=== PATIENT | male | born 1935 | race Caucasian/White ===

== ENCOUNTER 2016-03-05 14:38 | Inpatient (IN) | payer OTHER ==
[~2016-03-05] VITALS: Ht 167.6 cm; Wt 71.3 kg
--- NOTE | ~2016-03-05 | EKG ---
[place], [place] ELECTROCARDIOGRAM REPORT NAME: LELIA JUAREZ UNIT #: [id number] ROOM: 426 DOCTOR: CRISTOFER TELLEZ MD BIRTHDATE: [birth year] DOS: 03/05/2016 TIME: 1529 hours. Normal sinus rhythm with atrial sensing and ventricular pacing, rate 59 beats per minute. An abnormal ECG. No previous tracing is available for comparison. CRISTOFER TELLEZ MD CM:EKGRPT:ELECTROCARDIOGRAM REPORT 1703 1805 CRISTOFER TELLEZ MD
--- NOTE | ~2016-03-05 | PR ---
[place], [place] PROGRESS NOTE NAME: LELIA JUAREZ UNIT #: [id number] ROOM: 426 DOCTOR: CRISTOFER TELLEZ MD BIRTHDATE: [birth year] DOS: 03/08/2016 SUBJECTIVE: This patient with coronary artery disease, remote coronary stenting of the circumflex and PTCA of distal LAD, had normal LV systolic function, which had been bad previously. 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 I saw the patient in the office about a week ago and he was doing fine. He had no symptoms at all and came to the hospital because of feeling weak and tired. He had some dizziness, particularly when he stood up and he has a spinning sensation and some nausea with it. He did not have any palpitations. PHYSICAL EXAMINATION: GENERAL: The patient who looks very lively, alert and oriented, good complexion. VITAL SIGNS: Pulse is regular at 60 beats per minute, blood pressure is fine. NECK: Normal JVP. LUNGS: Few crackles in the lower zones. LABORATORY DATA: Monitor shows normal sinus rhythm in the 50s with atrial sensing and ventricle pacing. Interrogation of the pacemaker demonstrated JASON/elective replacement indicator; however, there is still a few weeks of battery left. IMPRESSION: This patient probably has acute vertigo, which is causing his symptoms. I do not believe this is cardiac. He requires pacemaker generator change, but this can be done electively. From cardiac standpoint, he may be discharged home. CRISTOFER TELLEZ MD CM:PNTRANS [id number] CRISTOFER TELLEZ MD 03/09/16 0950 interface
--- NOTE | ~2016-03-05 | CON ---
[place], [place] REPORT OF CONSULTATION NAME: LELIA JUAREZ UNIT #: [id number] ROOM: 426 DOCTOR: AFSHIN GARCIA MD BIRTHDATE: [birth year] DOS: 03/07/2016 I am covering for Dr. Fletcher. The patient is examined. REASON FOR CONSULTATION: Shortness of breath and significant dizziness and syncope. HISTORY OF PRESENT ILLNESS: An 81-year-old gentleman with a known history of permanent pacemaker, prostate cancer, hypertension, presented to the ER with significant dizziness, shortness of breath and near syncope. Incident started at 1:00 p.m. yesterday without any initiating incident. Does have a significant known history of coronary artery disease and stent placement. The patient became severely dizzy, diaphoretic and nauseated while he was sawing wood, but he says he saws wood daily and this has not occurred. His left arm started having pain and became stiff. He was able to bend over and brace himself, so that he did not fall over. Denies any chest discomfort, shortness of breath or palpitation. Symptoms got worse and he came to the emergency room. He decided to go to the emergency room as mentioned, where he became increasingly short of breath for the last 3 weeks and worsened activity. The patient was seen by Dr. Fletcher recently and was told that his pacemaker battery needs to be replaced. No fever, no chills, no new neurological issues. CT scan in the emergency room showed no acute intracranial process, small vessel white matter. Chest x-ray showed no active pulmonary disease. PAST MEDICAL HISTORY: Myocardial infarction, permanent pacemaker, prostate cancer previous stent placement, neck surgery, orchiectomy, and diabetes. SOCIAL HISTORY: Consumes alcohol occasionally. Denies any drug abuse. FAMILY HISTORY: Noncontributory. ALLERGIES: TO QUININE. HOME MEDICATIONS: Carvedilol and metformin. REVIEW OF SYSTEMS: CONSTITUTIONAL: No fever, no chills. HEENT: No visual disturbances or hearing problems. CARDIOVASCULAR: Reports diaphoresis. No chest discomfort. No palpitations. RESPIRATORY: Reports shortness of breath, no cough, no congestion, no hemoptysis. GASTROINTESTINAL: No nausea, no vomiting. GENITOURINARY: No dysuria, hematuria. NEUROLOGIC: Reports near syncopal episode. PSYCHIATRIC: Intact. SKIN: Normal. PHYSICAL EXAMINATION: [place], [place] REPORT OF CONSULTATION NAME: LELIA JUAREZ UNIT #: [id number] ROOM: 426 DOCTOR: AFSHIN GARCIA MD BIRTHDATE: [birth year] VITAL SIGNS: Blood pressure is 130/50. He is in paced rhythm. HEENT: Unremarkable. NECK: Supple, no JVD, no thyromegaly. No lymphadenopathy. LUNGS: Diminished breath sounds. HEART: Sounds are paced. NEUROLOGICAL: Appears to be stable. EXTREMITIES: Intact. LABORATORY DATA: Sodium 141, potassium 3.7, BUN and creatinine is 16 and 1. Troponins have all been negative. Hemoglobin 13.4, hematocrit 39.1. Electrolytes are normal. EKG shows intermittent paced rhythm. IMPRESSION: The patient with a near syncopal episode, urinary tract infection, moderate protein calorie malnutrition, permanent pacemaker, diabetes, hypertension, hyperlipidemia. RECOMMENDATIONS: I agree with the present care for the patient. I will review the echocardiogram. Get a carotid ultrasound, orthostatic blood pressures. We will have the pacemaker interrogated and if there is battery depletion, the patient needs the generator change. I discussed the case with Dr. Fletcher and further management will depend upon the pacer interrogation. AFSHIN GARCIA MD CM:CONSTR:REPORT OF CONSULTATION 0719 04/13/16 0859 interface
--- NOTE | ~2016-03-05 | EKG ---
[place], [place] ELECTROCARDIOGRAM REPORT NAME: LELIA JUAREZ UNIT #: [id number] ROOM: 426 DOCTOR: CRISTOFER TELLEZ MD BIRTHDATE: [birth year] DOS: 03/07/2016 TIME: 1005 hours. Sinus bradycardia at 55 beats per minute. A dual-chamber pacemaker is present with atrial sensing and ventricular pacing. CRISTOFER TELLEZ MD CM:EKGRPT:ELECTROCARDIOGRAM REPORT 1703 1812 CRISTOFER TELLEZ MD
--- NOTE | ~2016-03-05 | CON ---
[place], [place] REPORT OF CONSULTATION NAME: LELIA JUAREZ UNIT #: [id number] ROOM: 426 DOCTOR: MARAH GRIDER MD BIRTHDATE: [birth year] DOS: 03/07/2016 PULMONARY CONSULTATION CONSULTATION REQUESTED BY: Hospitalist services. REASON FOR CONSULTATION: To assess the patient for current pulmonary nodules. HISTORY OF PRESENT ILLNESS: An 81-year-old white male who has been hospitalized on 03/05/2016. The patient was noted with symptoms described with significant diuresis, shortness of breath and dizziness as well as a pain in the left shoulder. The pain has been described intermittently. The patient stated that he almost passed out for a short period of time without any injury. The symptoms have been noted intermittently. The patient has been brought to the hospital, currently treated for that. He was also noted some pain in the neck area. He denies any symptoms of hemoptysis. Denies any symptoms of wheezing or cough. The patient does have symptoms of shortness breath, which occurs with exertion and previously remains unchanged. REVIEW OF SYSTEMS: CONSTITUTIONAL SYMPTOMS: Symptoms of fatigue and tiredness noted without fever or chills. EYES: Denies any burning, redness, or tenderness. EARS, NOSE, THROAT SYMPTOMS: No sore throat, hoarseness, otalgia, postnasal drainage or epistaxis. CARDIOVASCULAR: Denies anginal pain, edema or pain of the lower extremities. GASTROINTESTINAL: Denies dysphagia, nausea, vomiting, diarrhea, abdominal weight loss, history of hematemesis, or melena. GENITOURINARY: Denies dysuria, suprapubic pain, hematuria. MUSCULOSKELETAL: Denies acute joint pain, redness, or tenderness. SKIN: No lesions or rashes. CENTRAL NERVOUS SYSTEM: Current symptom of dizziness, but no symptoms of seizures, diplopia, migrainous headache. Remaining systems were reviewed with the patient, they were noted all negative. PAST MEDICAL HISTORY: 1. Essential hypertension. 2. Type 2 diabetes mellitus. 3. Asbestos-related pulmonary disease. 4. History of previous known pulmonary nodules in the right upper lung. 5. History of prostate cancer. PAST SURGICAL HISTORY: 1. Pacemaker insertion. 2. Surgery of the foot. 3. Cardiac catheterization and coronary artery stent insertion. 4. Neck fusion. 5. Orchiectomy. 6. Related surgery of the prostate. 7. History of rheumatoid arthritis. [place], [place] REPORT OF CONSULTATION NAME: LELIA JUAREZ UNIT #: [id number] ROOM: 426 DOCTOR: MARAH GRIDER MD BIRTHDATE: [birth year] SOCIAL HISTORY: The patient is . He lives at home. Smoking for this patient was described to be none. There was no history of alcohol or illicit drug use. He has worked for 31 years in the [employer] with exposure to asbestos intermittent and other kind of dust. FAMILY HISTORY: Both parents for this patient, mother at age of 60+ years old from motor vehicle accident, father at the age of 5757 years old from complication of cancer of the colon. MEDICATIONS: Current administered medications noted use of Protonix, sliding scale insulin coverage, simvastatin, magnesium hydroxide p.r.n., and other p.r.n. medications. DRUG ALLERGY HISTORY: The patient noted allergy to QUININE. PHYSICAL EXAMINATION: GENERAL: An 81-year-old rather male who has been noted currently awake and alert without any distress, sitting on side of bed. VITAL SIGNS: Height of 5 feet 6 inches, weight of 157 pounds, BMI 25.3. Vital signs of the patient which has been recorded showed the temperature noted normal, respiratory rate 18-20, heart rate 91-53, blood pressure 120/50-154/62. Intake 1560, output 950 mL. Pulse oxygen saturation of the patient on room air was noted 97% saturation. HEENT: Head was atraumatic. Eyes nonicterus. NECK: Supple. CARDIOVASCULAR: S1, S2 is audible. LUNGS: Noted with mild basilar dry rales. There were no wheezing. ABDOMEN: Flat, soft, nontender. EXTREMITIES: Shows no edema, clubbing or cyanosis. MUSCULOSKELETAL: No deformities. SKIN: No lesions or rashes. CENTRAL NERVOUS SYSTEM: Cranial nerves 2 through 12 intact without any focal deficit. LABORATORY DATA: CBC on 03/05/2016 for this patient were noted as normal. Lactic acid on 03/05/2016 in the ER was noted normal. PT/PTT in ER on 03/05/2016 normal. CMP on 03/05/2016 in the ER for the patient remains normal as well. CT scan of the head for this patient that was done on 03/05/2016 in the Emergency, the patient does not have any acute abnormal findings. CK-MB, troponin of patient on 03/05/2016, 03/06/2016 were all noted normal. CMP repeated again on 03/06/2016 was normal. The PT/INR still remains normal yesterday as well. Ultrasound of the carotid Doppler was done on 03/06/2016 for the patient described less than 50% stenosis of bilateral internal carotid arteries. Chest x-ray that was done for this patient does not show any acute pulmonary abnormalities or visible nodules or masses. CT scan of the chest done as a CTA for the patient this morning earlier was personally reviewed. There was no evidence of pulmonary embolism. Basilar area of infiltration with patient noted with some pleural thickening, 1.2 cm right middle lobe nodule at 1.1 cm right upper lung nodule was noted. [place], [place] REPORT OF CONSULTATION NAME: LELIA JUAREZ UNIT #: [id number] ROOM: 426 DOCTOR: MARAH GRIDER MD BIRTHDATE: [birth year] IMPRESSION: 1. The patient with past history of pulmonary nodule in the right upper lung appeared to be stable, but possibility of additional new nodules in the right mid lung for this patient can be completely excluded. The previous images at this time could not be accessed from the PACS system for this patient from 2008. 2. The patient with history of past exposure to asbestos, asbestos-related lung disease resulting in the rales, there was no finding of acute congestive heart failure. 3. New syncopal episodes for the patient as well as a pain in the shoulder for this patient. It could be related to the arthritic finding with the past history of rheumatoid arthritis. 4. History of known colon cancer, rule out remote metastatic disease for the patient to the lungs as well. PLAN OF TREATMENT: No acute intervention at this time will be necessary. Continue the cardiac workup for the patient. The patient stated that he has been scheduled MRI of the head for this patient to be done tomorrow. He will be continued on the current plan of management. I will try to obtain the PACS images of the patient in 2008 and review and compare with the current finding to assess if there would be any further workup necessary depends on the findings and comparison tomorrow. Other previous treatment to be continued as in progress. Usual care. The assessment was discussed with patient's daughters who were present in the room with the patient. Thanks for allowing me to participate in the care of this patient. MARAH STACY MD CM:CONSTR:REPORT OF CONSULTATION 1408 04/13/16 0900 interface
--- NOTE | ~2016-03-05 | PR ---
[place], [place] PROGRESS NOTE NAME: LELIA JUAREZ UNIT #: [id number] ROOM: 426 DOCTOR: MARAH GRIDER MD BIRTHDATE: [birth year] DOS: 03/08/2016 PULMONARY FOLLOWUP NOTE SUBJECTIVE: The patient was seen and examined on 03/08/2016, has been noted comfortable without any distress. Denies symptoms of coughing, shortness breath, chest pain or acute symptoms. Currently, the patient has been investigated and will be undergoing CT scan of the head as well as stress testing. OBJECTIVE: VITAL SIGNS: Showed normal temperature, respiratory rate of 18, heart rate 78, blood pressure 141/60. Pulse oxygen saturation recorded on room air 97% saturation. HEENT: Examination of the head was atraumatic. Eyes nonicterus. NECK: Supple. CARDIOVASCULAR SYSTEM: S1, S2 is audible. LUNGS: Noted without any wheezing, occasional crackles. ABDOMEN: Soft and nontender. LABORATORY DATA: CT scan of the chest for this patient, which has been done previously on the was compared to previous CT scan 2008 shows stable right upper and middle lung pulmonary nodules which appeared to be almost the same size. 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 IMPRESSION: Possibility of stable pulmonary nodules was considered for the patient with the previous CT scan and progression, possibly asbestos-related pulmonary disease and pulmonary fibrosis. PLAN OF TREATMENT: The patient recommended outpatient for further assessment of current problem. In the meantime, continue the current workup for this patient, which has been continued for the patient during this hospitalization for pain, dizziness and other symptoms. [place], [place] PROGRESS NOTE NAME: LELIA JUAREZ UNIT #: [id number] ROOM: 426 DOCTOR: MARAH GRIDER MD BIRTHDATE: [birth year] MARAH STACY MD CM:PNTRANS [id number] MARAH ADLER MD 04/13/16 0854 interface
[~2016-03-05 14:38] MED LIST: ANTIBIOTIC; DELTASONE5 MG PO; HEART MEDICATIONS; KEFLEX500 MG PO; LASIX20 MG PO; METFORMIN500 MG PO; PREDNISONE10 MG PO
[2016-03-05] MEDS ORDERED: CARVEDILOL6.25 MG PO (14:43)
[2016-03-05] MEDS ORDERED: SIMVASTATIN40 MG PO (14:43)
[2016-03-05 14:44] VITALS: BP 158/87
[2016-03-05] MEDS ORDERED: VIAGRA100 MG PO (14:44)
[2016-03-05 15:46] LABS: BASO % 0.3 % (0.0-1.0); EOS # 0.2 10*3/uL (0.0-0.4); EOS % 2.4 % (1.0-4.0); HEMATOCRIT 40.6 % (42.0-52.0); HEMOGLOBIN 14.3 g/dl (14.0-18.0); LYMPH # 1.5 10*3/uL (1.3-4.4); LYMPH % 16.5 % (27.0-41.0); MEAN CELL VOLUME 90.2 fl (80.0-94.0); MEAN CORPUSCULAR HGB 31.8 pg (27.0-31.0); MEAN CORPUSCULAR HGB CONC 35.2 g/dl (33.0-37.0); MEAN PLATELET VOLUME 10.7 fl (9.6-12.3); MONO # 0.8 10*3/uL (0.1-1.0); MONO % 8.5 % (3.0-9.0); NEUT # 6.5 10*3/uL (2.3-7.9); PLATELET COUNT AUTOMATED 154 10*3/uL (130-400); RED CELL DISTRI WIDTH 13.2 % (0-14.5)
[2016-03-05 15:55] LABS: PROTHROMBIN TIME 10.4 SECONDS (9.0-12.4)
[2016-03-05 16:03] LABS: ALBUMIN 3.5 gm/dl (3.1-4.5); ALKALINE PHOSPHATASE 74 U/L (45-117); BILIRUBIN, TOTAL 0.6 mg/dl (0.2-1.0); BUN 16 mg/dl (7-24); CARBON DIOXIDE 24 mmol/L (21-32); CHLORIDE 107 mmol/L (98-107); CPK 75 U/L (39-308); EST GLOM FILT AFRICAN AMERICAN > 60 ml/min; GLUCOSE 93 mg/dL (65-99); MAGNESIUM 1.8 mg/dL (1.5-2.1); POTASSIUM 3.7 mmol/L (3.5-5.1); SGOT/AST 17 IU/L (3-35); SGPT/ALT 15 U/L (12-78); SODIUM 141 mmol/L (136-145); TOTAL PROTEIN 6.8 gm/dL (6.4-8.2); TROPONIN I 0.016 ng/ml (<0.5)
[2016-03-05 18:30] VITALS: BP 162/64
[2016-03-05 20:00] VITALS: BP 144/65
[2016-03-06] VITALS: BP 130/56
[2016-03-06 00:34] LABS: CKMB 1.3 ng/ml (0.5-3.6)
[2016-03-06 00:36] LABS: CPK 53 U/L (39-308); TROPONIN I < 0.015 ng/ml (<0.5)
[2016-03-06 06:08] LABS: BASO % 0.5 % (0.0-1.0); EOS # 0.3 10*3/uL (0.0-0.4); EOS % 4.1 % (1.0-4.0); HEMATOCRIT 39.1 % (42.0-52.0); HEMOGLOBIN 13.4 g/dl (14.0-18.0); LYMPH # 1.4 10*3/uL (1.3-4.4); LYMPH % 22.4 % (27.0-41.0); MEAN CELL VOLUME 91.4 fl (80.0-94.0); MEAN CORPUSCULAR HGB 31.3 pg (27.0-31.0); MEAN CORPUSCULAR HGB CONC 34.3 g/dl (33.0-37.0); MONO # 0.7 10*3/uL (0.1-1.0); MONO % 10.5 % (3.0-9.0); NEUT % 62.2 % (47.0-73.0); PLATELET COUNT AUTOMATED 143 10*3/uL (130-400); RED BLOOD COUNT 4.28 10*6/uL (4.50-5.90); RED CELL DISTRI WIDTH 13.2 % (0-14.5); WHITE BLOOD COUNT 6.4 10*3/uL (4.8-10.8)
[2016-03-06 06:19] LABS: CKMB 1.2 ng/ml (0.5-3.6); CPK 44 U/L (39-308)
[2016-03-06 06:21] LABS: TROPONIN I < 0.015 ng/ml (<0.5)
[2016-03-06 06:31] LABS: HEMOGLOBIN A1c 6.4 % (4.8-5.6)
[2016-03-06 06:41] LABS: ALBUMIN 3.1 gm/dl (3.1-4.5); ALKALINE PHOSPHATASE 70 U/L (45-117); BILIRUBIN, TOTAL 0.8 mg/dl (0.2-1.0); BUN 14 mg/dl (7-24); CARBON DIOXIDE 27 mmol/L (21-32); CHLORIDE 107 mmol/L (98-107); CHOLESTEROL 122 mg/dL (<200); EST GLOM FILT AFRICAN AMERICAN > 60 ml/min; GLUCOSE 102 mg/dL (65-99); HDL CHOLESTEROL 39 mg/dl (40-60); LDL CHOLESTEROL 62 mg/dL (9-159); PHOSPHOROUS 3.5 mg/dL (2.5-4.9); SGOT/AST 15 IU/L (3-35); SGPT/ALT 13 U/L (12-78); SODIUM 144 mmol/L (136-145); TOTAL PROTEIN 6.3 gm/dL (6.4-8.2); TRIGLYCERIDES 107 mg/dl (<150); VLDL CHOLESTEROL 21 mg/dL (6-40)
[2016-03-06 06:43] LABS: PROTHROMBIN TIME 10.6 SECONDS (9.0-12.4)
[2016-03-06 07:18] LABS: FOLIC ACID 14.66 ng/mL (>5.38); VITAMIN D, 25-HYDROXY 26.3 ng/mL (30-100)
[2016-03-06 08:00] VITALS: BP 138/50
[2016-03-06 09:39] LABS: BILIRUBIN NEGATIVE (NEGATIVE); BLOOD 1+ (NEGATIVE); CLARITY CLOUDY (CLEAR); COLOR YELLOW (YELLOW); GLUCOSE NEGATIVE (NEGATIVE); KETONE NEGATIVE (NEGATIVE); LEUKO ESTERASE 2+ (NEGATIVE); NITRITE NEGATIVE (NEGATIVE); PH 5.5 (5.0-9.0); PROTEIN TRACE (NEGATIVE); UROBILINOGEN 0.2 E.U./dl (0.2-1.0)
[2016-03-06 10:12] LABS: BACTERIA TRACE; WBC 31-40 wbc/hpf (0-5)
[2016-03-06 10:13] LABS: URINE REFLEX COMMENT YES (NO)
[2016-03-06 12:17] LABS: CKMB 0.7 ng/ml (0.5-3.6); CPK 46 U/L (39-308)
[2016-03-06 12:23] LABS: TROPONIN I < 0.015 ng/ml (<0.5)
[2016-03-06 16:00] VITALS: BP 131/56
[2016-03-06 20:00] VITALS: BP 111/46
[2016-03-07] VITALS: BP 120/50
[2016-03-07 08:00] VITALS: BP 154/62
[2016-03-07 09:24] LABS: CKMB 0.7 ng/ml (0.5-3.6)
[2016-03-07 09:26] LABS: CPK 84 U/L (39-308); TROPONIN I < 0.015 ng/ml (<0.5)
[2016-03-07 12:00] VITALS: BP 151/61
[2016-03-07 14:11] LABS: CKMB 1.2 ng/ml (0.5-3.6)
[2016-03-07 14:25] LABS: CPK 39 U/L (39-308); TROPONIN I < 0.015 ng/ml (<0.5)
[2016-03-07 16:00] VITALS: BP 152/85
[2016-03-07 20:00] VITALS: BP 137/43
[2016-03-07 21:12] LABS: CKMB 0.6 ng/ml (0.5-3.6); CPK 37 U/L (39-308)
[2016-03-07 21:22] LABS: TROPONIN I < 0.015 ng/ml (<0.5)
[2016-03-08] VITALS: BP 116/51
[2016-03-08 00:50] LABS: CKMB 0.9 ng/ml (0.5-3.6); CPK 30 U/L (39-308)
[2016-03-08 00:51] LABS: TROPONIN I < 0.015 ng/ml (<0.5)
[2016-03-08 06:45] LABS: BASO % 0.2 % (0.0-1.0); EOS # 0.3 10*3/uL (0.0-0.4); EOS % 3.1 % (1.0-4.0); HEMATOCRIT 40.8 % (42.0-52.0); HEMOGLOBIN 13.6 g/dl (14.0-18.0); LYMPH # 1.2 10*3/uL (1.3-4.4); LYMPH % 15.3 % (27.0-41.0); MEAN CELL VOLUME 92.9 fl (80.0-94.0); MEAN CORPUSCULAR HGB CONC 33.3 g/dl (33.0-37.0); MEAN PLATELET VOLUME 11.4 fl (9.6-12.3); MONO # 0.6 10*3/uL (0.1-1.0); MONO % 6.9 % (3.0-9.0); NEUT % 74.1 % (47.0-73.0); PLATELET COUNT AUTOMATED 127 10*3/uL (130-400); RED BLOOD COUNT 4.39 10*6/uL (4.50-5.90); RED CELL DISTRI WIDTH 13.4 % (0-14.5); WHITE BLOOD COUNT 8.1 10*3/uL (4.8-10.8)
[2016-03-08 07:21] LABS: ALKALINE PHOSPHATASE 75 U/L (45-117); BILIRUBIN, TOTAL 0.5 mg/dl (0.2-1.0); BUN 19 mg/dl (7-24); CARBON DIOXIDE 26 mmol/L (21-32); CHLORIDE 111 mmol/L (98-107); EST GLOM FILT AFRICAN AMERICAN > 60 ml/min; GLUCOSE 117 mg/dL (65-99); MAGNESIUM 2.1 mg/dL (1.5-2.1); PHOSPHOROUS 2.5 mg/dL (2.5-4.9); POTASSIUM 4.1 mmol/L (3.5-5.1); SGOT/AST 10 IU/L (3-35); SGPT/ALT 16 U/L (12-78); SODIUM 144 mmol/L (136-145); TOTAL PROTEIN 6.6 gm/dL (6.4-8.2)
[2016-03-08 08:32] VITALS: BP 140/78
[2016-03-08 12:00] VITALS: BP 141/60
[2016-03-08 16:00] VITALS: BP 138/53
== END 2016-03-08 16:26 | disposition home or self-care (01) | DRG 308 ==
LOC: ED 14:38 → EDHOLD 17:06 → 4E 17:06
PROVIDERS: Family Medicine; Internal Medicine; Student in an Organized Health Care Education/Training Program
DX: I49.9 Cardiac arrhythmia, unspecified (principal); G93.40 Encephalopathy, unspecified; E44.0 Moderate protein-calorie malnutrition; J84.10 Pulmonary fibrosis, unspecified; N39.0 Urinary tract infection, site not specified; I20.8 Other forms of angina pectoris; I10 Essential (primary) hypertension; R91.8 Other nonspecific abnormal finding of lung field; E11.9 Type 2 diabetes mellitus without complications; E78.5 Hyperlipidemia, unspecified; E55.9 Vitamin D deficiency, unspecified; I25.2 Old myocardial infarction; Z98.1 Arthrodesis status; Z95.0 Presence of cardiac pacemaker; Z85.46 Personal history of malignant neoplasm of prostate; Z98.890 Other specified postprocedural states; Z95.5 Presence of coronary angioplasty implant and graft; Z68.26 Body mass index [BMI] 26.0-26.9, adult; Z85.038 Personal history of other malignant neoplasm of large intestine; Z79.899 Other long term (current) drug therapy; Z88.8 Allergy status to other drugs, medicaments and biological substances; Z82.49 Family history of ischemic heart disease and other diseases of the circulatory system; Z80.8 Family history of malignant neoplasm of other organs or systems; Z83.3 Family history of diabetes mellitus

== ENCOUNTER → 2016-07-13 | Outpatient (CLI) | payer OTHER ==
[~2016-07-13] MED LIST changes: +CARVEDILOL6.25 MG PO; +SIMVASTATIN40 MG PO; +VIAGRA100 MG PO
[2016-07-13 09:03] LABS: HEMOGLOBIN A1c 6.6 % (4.8-5.6)
[2016-07-13 09:08] LABS: BASO # 0.1 10*3/uL (0.0-0.1); BASO % 0.8 % (0.0-1.0); EOS # 0.3 10*3/uL (0.0-0.4); EOS % 4.9 % (1.0-4.0); HEMATOCRIT 43.5 % (42.0-52.0); HEMOGLOBIN 14.5 g/dl (14.0-18.0); LYMPH # 1.5 10*3/uL (1.3-4.4); LYMPH % 23.1 % (27.0-41.0); MEAN CELL VOLUME 94.2 fl (80.0-94.0); MEAN CORPUSCULAR HGB 31.4 pg (27.0-31.0); MEAN CORPUSCULAR HGB CONC 33.3 g/dl (33.0-37.0); MEAN PLATELET VOLUME 11.2 fl (9.6-12.3); MONO # 0.7 10*3/uL (0.1-1.0); MONO % 10.5 % (3.0-9.0); NEUT # 3.8 10*3/uL (2.3-7.9); NEUT % 60.1 % (47.0-73.0); PLATELET COUNT AUTOMATED 159 10*3/uL (130-400); RED BLOOD COUNT 4.62 10*6/uL (4.50-5.90); RED CELL DISTRI WIDTH 13.4 % (0-14.5); WHITE BLOOD COUNT 6.3 10*3/uL (4.8-10.8)
[2016-07-13 09:17] LABS: ALBUMIN 3.6 gm/dl (3.1-4.5); ALKALINE PHOSPHATASE 81 U/L (45-117); BILIRUBIN, TOTAL 0.5 mg/dl (0.2-1.0); BUN 19 mg/dl (7-24); CARBON DIOXIDE 29 mmol/L (21-32); CHLORIDE 108 mmol/L (98-107); CHOLESTEROL 181 mg/dL (<200); EST GLOM FILT AFRICAN AMERICAN > 60 ml/min; GLUCOSE 127 mg/dL (65-99); HDL CHOLESTEROL 49 mg/dl (40-60); LDL CHOLESTEROL 110 mg/dL (9-159); POTASSIUM 4.1 mmol/L (3.5-5.1); SGOT/AST 11 IU/L (3-35); SGPT/ALT 17 U/L (12-78); SODIUM 144 mmol/L (136-145); TOTAL PROTEIN 7.4 gm/dL (6.4-8.2); TRIGLYCERIDES 112 mg/dl (<150); VLDL CHOLESTEROL 22 mg/dL (6-40)
== END | disposition home or self-care (01) ==
LOC: LAB 08:13
PROVIDERS: Internal Medicine
DX: C61 Malignant neoplasm of prostate (principal); I25.10 Atherosclerotic heart disease of native coronary artery without angina pectoris; E11.9 Type 2 diabetes mellitus without complications; E78.4 Other hyperlipidemia; M06.9 Rheumatoid arthritis, unspecified

== ENCOUNTER → 2016-12-31 | Outpatient (CLI) | payer OTHER ==
[2016-12-31 09:39] LABS: BASO % 0.5 % (0.0-1.0); EOS # 0.2 10*3/uL (0.0-0.4); EOS % 2.7 % (1.0-4.0); HEMATOCRIT 39.9 % (42.0-52.0); HEMOGLOBIN 13.5 g/dl (14.0-18.0); LYMPH # 1.5 10*3/uL (1.3-4.4); LYMPH % 16.8 % (27.0-41.0); MEAN CELL VOLUME 95.7 fl (80.0-94.0); MEAN CORPUSCULAR HGB 32.4 pg (27.0-31.0); MEAN CORPUSCULAR HGB CONC 33.8 g/dl (33.0-37.0); MEAN PLATELET VOLUME 11.4 fl (9.6-12.3); MONO # 0.8 10*3/uL (0.1-1.0); MONO % 8.5 % (3.0-9.0); NEUT # 6.3 10*3/uL (2.3-7.9); NEUT % 71.2 % (47.0-73.0); PLATELET COUNT AUTOMATED 159 10*3/uL (130-400); RED BLOOD COUNT 4.17 10*6/uL (4.50-5.90); WHITE BLOOD COUNT 8.8 10*3/uL (4.8-10.8)
[2016-12-31 10:09] LABS: BUN 28 mg/dl (7-24); CHLORIDE 107 mmol/L (98-107); CHOLESTEROL 199 mg/dL (<200); CREATININE 1.16 mg/dL (0.70-1.30); HDL CHOLESTEROL 51 mg/dl (40-60); LDL CHOLESTEROL 129 mg/dL (9-159); POTASSIUM 4.3 mmol/L (3.5-5.1); SGOT/AST 13 IU/L (3-35); SGPT/ALT 17 U/L (12-78); SODIUM 143 mmol/L (136-145); TRIGLYCERIDES 97 mg/dl (<150); VLDL CHOLESTEROL 19 mg/dL (6-40)
== END | disposition home or self-care (01) ==
LOC: LAB 08:44
PROVIDERS: Internal Medicine
DX: E11.9 Type 2 diabetes mellitus without complications (principal); E78.4 Other hyperlipidemia; E03.9 Hypothyroidism, unspecified; E55.9 Vitamin D deficiency, unspecified; I65.03 Occlusion and stenosis of bilateral vertebral arteries

== ENCOUNTER → 2018-08-30 | Outpatient (CLI) | payer OTHER | END | disposition home or self-care (01) | LOC: CARD 08-01 14:00 | DX: I08.3 Combined rheumatic disorders of mitral, aortic and tricuspid valves (principal); I11.0 Hypertensive heart disease with heart failure; I50.30 Unspecified diastolic (congestive) heart failure; I42.9 Cardiomyopathy, unspecified ==

== ENCOUNTER → 2019-10-15 | Outpatient (CLI) | payer OTHER | END | disposition home or self-care (01) | LOC: RAD 14:17 | DX: I50.22 Chronic systolic (congestive) heart failure (principal) ==

== ENCOUNTER → 2019-11-01 | Outpatient (CLI) | payer OTHER | END | disposition home or self-care (01) | LOC: CARD 13:39 | PROVIDERS: ATTEND Internal Medicine Cardiovascular Disease | DX: I50.22 Chronic systolic (congestive) heart failure (principal) ==